=== PATIENT | male | born 1940 | race Caucasian/White ===

== ENCOUNTER 2020-08-12 07:06 | Emergency (ER) | payer MEDICARE, BC ==
[2020-08-12] MEDS ORDERED: ONDANSETRON HCL INJ/PF 4 MG/2 ML SDV IV ONE (07:57)
[2020-08-12] MEDS ORDERED: MORPHINE SULFATE 10 MG/ML INJ IV ONE (07:57)
[2020-08-12 08:20] LABS: ABSOLUTE LYMPHOCYTES (AUTO) 1.1 10^3/uL (0.5-4.7); ABSOLUTE MONOCYTES (AUTO) 0.3 10^3/uL (0.1-1.4); ABSOLUTE NEUT (AUTO) 5.4 10^3/uL (1.7-8.2); BASOPHILS % (AUTO) 0.5 % (0-2); EOSINOPHILS % (AUTO) 0.3 % (0-6); HEMATOCRIT 45.5 % (37.9-51.0); HEMOGLOBIN 15.8 g/dL (13.5-17.0); LYMPHOCYTES % (AUTO) 15.4 % (13-45); MEAN CORPUSCULAR HEMOGLOBIN 30.9 pg (27.0-33.4); MEAN CORPUSCULAR HGB CONC 34.7 g/dL (32.0-36.0); MEAN CORPUSCULAR VOLUME 89 fl (80-97); MONOCYTES % (AUTO) 4.3 % (3-13); PLATELET COUNT 175 10^3/uL (150-450); RED BLOOD COUNT 5.11 10^6/uL (4.35-5.55); RED CELL DISTRIBUTION WIDTH 14.6 % (11.5-14.0); SEGMENTED NEUTROPHILS % (AUTO) 79.5 % (42-78); TOTAL CELLS COUNTED % (AUTO) 100 %; WHITE BLOOD COUNT 6.8 10^3/uL (4.0-10.5)
[2020-08-12 08:36] LABS: ALBUMIN 4.4 g/dL (3.5-5.0); ALKALINE PHOSPHATASE 67 U/L (38-126); ANION GAP 10 (5-19); ASPARTATE AMINO TRANSFERASE 36 U/L (17-59); BILIRUBIN,DIRECT 0.4 mg/dL (0.0-0.4); BILIRUBIN,TOTAL 0.8 mg/dL (0.2-1.3); BLOOD UREA NITROGEN 40 mg/dL (7-20); CALCIUM 10.1 mg/dL (8.4-10.2); CARBON DIOXIDE 27 mmol/L (22-30); CHLORIDE 102 mmol/L (98-107); GLUCOSE 152 mg/dL (75-110); POTASSIUM 4.5 mmol/L (3.6-5.0); TOTAL PROTEIN 6.9 g/dL (6.3-8.2)
[2020-08-12] MEDS ORDERED: HYDROMORPHONE HCL INJ/PF 2 MG/ML AMPULE IV ONE (08:55)
--- NOTE | 2020-08-12 09:05 | RADIOLOGY REPORT (SQ) ---
EXAM DESCRIPTION: CT ABD/PELVIS NO ORAL OR IV IMAGES COMPLETED DATE/TIME: 08/12/2020 8:44 am REASON FOR STUDY: right flank pain/hematuria COMPARISON: None. TECHNIQUE: CT scan of the abdomen and pelvis performed without intravenous or oral contrast. Images reviewed with lung, soft tissue, and bone windows. Reconstructed coronal and sagittal MPR images revi ewed. All images stored on PACS. All CT scanners at this facility use dose modulation, iterative reconstruction, and/or weight based d osing when appropriate to reduce radiation dose to as low as reasonably achievable (ALARA). [facility]: Dose Right [facility]: CareDose [facility]: Dose Right [facility]: Teradose 4D [facility]: Smart Basis Science RADIATION DOSE: CT Rad equipment meets quality standard of care and radiation dose reduction techniq ues were employed. CTDIvol: 12.8 mGy. DLP: 746 mGy-cm.mGy. LIMITATIONS: None. FINDINGS: LOWER CHEST: Minimal dependent hypoventilatory change. Calcified right basilar granuloma. Scattered coronary atherosclerosis. NON-CONTRASTED LIVER, SPLEEN, ADRENALS: Evaluation limited by lack of IV contrast. No identified sign ificant masses. Small splenule noted. PANCREAS: No masses. No peripancreatic inflammatory changes. GALLBLADDER: No identified stones by CT criteria. No inflammatory changes to suggest cholecystitis. RIGHT KIDNEY AND URETER: No suspicious masses. Assessment limited by lack of IV contrast. There are a few large exophytic cysts, largest measuring 7.8 cm. Nonobstructing stone within the interpolar re gion measuring 6 mm. There is an additional punctate stone at the ureterovesicular junction (series 3, image 81). Mild very nephric and periureteral stranding without significant hydronephrosis. LEFT KIDNEY AND URETER: No suspicious masses. Assessment limited by lack of IV contrast. Exophytic c yst. Likely punctate nonobstructing stone within the upper pole. No hydronephrosis or hydroureter. AORTA AND RETROPERITONEUM: No aneurysm. No retroperitoneal masses or adenopathy. BOWEL AND PERITONEAL CAVITY: No evidence of intestinal obstruction. No focal bowel wall thickening. Scattered colonic diverticula. Small hiatal hernia. APPENDIX: Normal. PELVIS, BLADDER, AND ABDOMINAL WALL:Decompressed urinary bladder. Punctate stone vesicular junction. No pelvic free fluid, adenopathy or mass. Small fat containing left inguinal hernia. No subcutane ous masses. BONES: No acute bony abnormality. No suspicious lytic or blastic osseous lesions. Lower lumbar face t arthropathy. Minimal grade 1 anterolisthesis of L4 on L5. OTHER: No other significant finding. IMPRESSION: 1. Punctate stone at the right ureterovesicular junction without significant hydronephr osis. Mild periureteral stranding. 2. Additional nonobstructing stones and renal cysts as above. COMMENT: Quality ID # [id number]: Final reports with documentation of one or more dose reduction techniques (e.g., Automated exposure control, adjustment of the mA and/or kV according to patient size, use of iterative reconstruction technique) TECHNICAL DOCUMENTATION: JOB ID: [id number] 2010 [employer]- All Rights Reserved Reading location - IP/workstation name: [email or web address]
[2020-08-12] MEDS ORDERED: KETOROLAC TROMETHAMINE INJ/PF 30 MG/1 ML SDV IV ONE (09:23)
[2020-08-12] MEDS ORDERED: TAMSULOSIN HCL 0.4 MG CAP.SR.24H PO ONE (09:24)
[2020-08-12] MEDS ORDERED: NORMAL SALINE 500 ML IV ONE (09:25)
[2020-08-12 10:05] LABS: APPEARANCE,URINE SLIGHTLY-CLOUDY; BILIRUBIN,URINE NEGATIVE (NEGATIVE); COLOR,URINE YELLOW; GLUCOSE, URINE 50 mg/dL (NEGATIVE); KETONES,URINE NEGATIVE (NEGATIVE); LEUKOCYTE ESTERASE,URINE NEGATIVE (NEGATIVE); NITRITE,URINE NEGATIVE (NEGATIVE); PROTEIN,URINE NEGATIVE (NEGATIVE); URINE SPECIFIC GRAVITY 1.023; UROBILINOGEN,URINE NEGATIVE mg/dL (<2.0)
--- NOTE | 2020-08-12 11:27 | ER Document Report ---
Entered by CAMMY FERNANDEZ SCRIBE 08/12/20 0756 Acting as scribe for:MICHAEL LAMB MD ED GI/ - General Chief Complaint: Flank Pain Stated Complaint: FLANK PAIN Mode of Arrival: Ambulatory Information source: Patient Notes: This 80 year old male patient presents to the ED today with complaints of sudden onset right flank pain that started at 0330 this morning. Patient describes the pain as sharp in nature and 4.5/5 in severity that radiates towards his RLQ. He reports associated nausea, diaphoresis, and hematuria. He states that he took x2 OTC Tylenol around 0330 with mild relief. Denies history of kidney stones. Denies vomiting, fever, chills, cough, sore throat, sinus problems, leg swelling, or known COVID exposure. - Related Data Allergies/Adverse Reactions: No Known Allergies Allergy (Verified 08/12/20 07:25) Home Medications: cholesterol medications Past Medical History - General Information source: Patient, Relative - - Social History Smoking Status: Never Smoker Cigarette use (# per day): No Chew tobacco use (# tins/day): No Smoking Education Provided: No Frequency of alcohol use: None Drug Abuse: None Lives with: Spouse/Significant other Family History: Reviewed & Not Pertinent Patient has suicidal ideation: No Patient has homicidal ideation: No - Past Medical History Cardiac Medical History: Reports: Hx Hypercholesterolemia Past Surgical History: 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 denies: Chills, Fever EENT: See HPI. denies: Sinus pressure, Sinus discharge, Throat pain Cardiovascular: No symptoms reported Respiratory: See HPI. denies: Cough Gastrointestinal: See HPI, Abdominal pain, Nausea. denies: Vomiting Genitourinary: See HPI, Flank pain, Hematuria. denies: Dysuria Male Genitourinary: No symptoms reported Musculoskeletal: See HPI. denies: Leg swelling Skin: No symptoms reported Hematologic/Lymphatic: No symptoms reported Neurological/Psychological: No symptoms reported -: Yes All other systems reviewed and negative Physical Exam - Vital signs Vitals: Temp Pulse Resp BP Pulse Ox 97.5 F 72 14 171/68 H 98 08/12/20 07:18 08/12/20 07:18 08/12/20 07:18 08/12/20 07:18 08/12/20 07:18 - General General appearance: Alert In distress: None - HEENT Eyes: Other - prosthetic left eye - Respiratory Respiratory status: No respiratory distress Chest status: Nontender Breath sounds: Normal Chest palpation: Normal - Cardiovascular Rhythm: Regular Heart sounds: Normal auscultation, S1 appreciated, S2 appreciated Murmur: No Friction rub: No Gallop: None auscultated - Abdominal Inspection: Obese Distension: No distension Bowel sounds: Normal Tenderness: Tender - RLQ tenderness to palpation Organomegaly: No organomegaly - Back Back: CVA tenderness - Right CVA tenderness to percussion, Other - No rash to suggest shingles. - Extremities General upper extremity: Normal inspection General lower extremity: Normal inspection. No: Edema - Neurological Neuro grossly intact: Yes Orientation: AAOx4 Karsten Coma Scale Eye Opening: Spontaneous Karsten Coma Scale Verbal: Oriented Karsten Coma Scale Motor: Obeys Commands Karsten Coma Scale Total: 15 - Psychological Associated symptoms: Normal affect, Normal mood - Skin Skin Temperature: Warm Skin Moisture: Dry Skin Color: Normal Skin irregularity: negative: Rash Course - Re-evaluation Re-evalutation: 08/12/20 11:13 She reports she is pain-free at this time. - Vital Signs Vital signs: Temp Pulse Resp BP Pulse Ox 97.5 F 72 16 160/82 H 92 08/12/20 07:18 08/12/20 09:06 08/12/20 09:06 08/12/20 09:06 08/12/20 09:06 08/12/20 11:13 Vital signs stable patient does have a history of hypertension his blood pressure is 160/82. - Laboratory Result Diagrams: 08/12/20 08:05 08/12/20 08:05 Laboratory results interpreted by me: 08/12/20 08/12/20 08/12/20 08:05 08:05 09:39 RDW 14.6 H Seg Neutrophils % 79.5 H BUN 40 H Creatinine 1.99 H Est GFR ( Amer) 40 L Est GFR (MDRD) Non-Af 33 L Glucose 152 H Urine Glucose (UA) 50 H Urine Blood MODERATE H 08/12/20 08:05 08/12/20 08:05 MCV 89 fl (80-97) 08/12/20 08:05 MCH 30.9 pg (27.0-33.4) 08/12/20 08:05 MCHC 34.7 g/dL (32.0-36.0) 08/12/20 08:05 RDW 14.6 % (11.5-14.0) H 08/12/20 08:05 Seg Neutrophils % 79.5 % (42-78) H 08/12/20 08:05 Chloride 102 mmol/L (98-107) 08/12/20 08:05 Carbon Dioxide 27 mmol/L (22-30) 08/12/20 08:05 Anion Gap 10 (5-19) 08/12/20 08:05 Est GFR ( Amer) 40 (>60) L 08/12/20 08:05 Glucose 152 mg/dL (75-110) H 08/12/20 08:05 Calcium 10.1 mg/dL (8.4-10.2) 08/12/20 08:05 Total Bilirubin 0.8 mg/dL (0.2-1.3) 08/12/20 08:05 AST 36 U/L (17-59) 08/12/20 08:05 Alkaline Phosphatase 67 U/L (38-126) 08/12/20 08:05 Total Protein 6.9 g/dL (6.3-8.2) 08/12/20 08:05 Albumin 4.4 g/dL (3.5-5.0) 08/12/20 08:05 Lipase 151.7 U/L (23-300) 08/12/20 08:05 Urine Color YELLOW 08/12/20 09:39 Urine Appearance SLIGHTLY-CLOUDY 08/12/20 09:39 Urine pH 5.0 (5.0-9.0) 08/12/20 09:39 Ur Specific [place] 1.023 08/12/20 09:39 Urine Protein NEGATIVE mg/dL (NEGATIVE) 08/12/20 09:39 Urine Glucose (UA) 50 mg/dL (NEGATIVE) H 08/12/20 09:39 Urine Ketones NEGATIVE mg/dL (NEGATIVE) 08/12/20 09:39 Urine Blood MODERATE (NEGATIVE) H 08/12/20 09:39 Urine Nitrite NEGATIVE (NEGATIVE) 08/12/20 09:39 Ur Leukocyte Esterase NEGATIVE (NEGATIVE) 08/12/20 09:39 Urine WBC (Auto) 1 /HPF 08/12/20 09:39 Urine RBC (Auto) 6 /HPF 08/12/20 09:39 Urinalysis shows a moderate amount of blood otherwise no other significant abnormalities of the laboratories patient has a creatinine of 1.9 - Diagnostic Test Radiology reviewed: Image reviewed, Reports reviewed Radiology results interpreted by me: 08/12/20 11:15 Abdomen/Pelvis CT 08/12/20 07:58 IMPRESSION: 1. Punctate stone at the right ureterovesicular junction without significant hydronephrosis. Mild periureteral stranding. 2. Additional nonobstructing stones and renal cysts as above. CT scan of the abdomen pelvis shows that there is a punctate right ureterovesicular junction stone without significant hydronephrosis. Discharge - Discharge Clinical Impression: Kidney stone on right side Condition: Stable Disposition: HOME, SELF-CARE Additional Instructions: Kidney Stone You are passing or have passed a kidney stone. These stones are usually due to increased calcium or uric acid concentrations in your urine. Stones within the kidney itself are not painful. The pain occurs as the stone leaves the kidney to pass down the long tube, called the ureter, leading to the bladder. If the stone is small, it will usually pass by itself. Most patients can pass the stone at home. You will usually receive medications for pain, nausea or vomiting, and sometimes a medication to assist in passing the kidney stone. However, if the pain is very severe or if vomiting prevents you from taking oral pain medications, you may need to return for further treatment. Drink three or four quarts of fluids per day. You will be given pain medication (if needed) and urine strainers. Strain all your urine to see if the stone passes. If your doctor has asked you to bring the stone in for analysis, return with the stone once it has passed. Return if pain or vomiting become severe, if you develop a high fever, if you are unable to pass your urine, or if other unusual symptoms occur. Prescriptions: Tamsulosin HCl [Flomax 0.4 mg Cap.sr] 0.4 mg PO DAILY #7 cap.sr.24h Oxycodone HCl/Acetaminophen [Percocet 5-325 mg Tablet] 1 tab PO Q6H PRN 2 Days #8 tab PRN Reason: pain Ondansetron [Zofran Odt 4 mg Tablet] 1 - 2 tab PO Q4H PRN #15 tab.rapdis PRN Reason: For Nausea/Vomiting Referrals: SAFIA VASQUEZ MD [NO LOCAL MD] - Follow up tomorrow (right urteral punctate stone on ct scan at the uvj junction.) I personally performed the services described in the documentation, reviewed and edited the documentation which was dictated to the scribe in my presence, and it accurately records my words and actions.
[2020-08-12 11:58] VITALS: BP 122/69
== END 2020-08-12 11:58 | disposition home or self-care (01) ==
LOC: ER 07:06
DX: N20.1 Calculus of ureter (principal); R31.9 Hematuria, unspecified; Q61.02 Congenital multiple renal cysts; R11.0 Nausea; R61 Generalized hyperhidrosis; I10 Essential (primary) hypertension; E78.00 Pure hypercholesterolemia, unspecified; Z79.899 Other long term (current) drug therapy
CPT/HCPCS: 99285; 96361; 96374; 96375; 36415; 83690; 85025; 80053; 81001; 74176; J1885; J2270; J1170; A9270; J2405; J7040